=== PATIENT | female | born 1995 | race Caucasian/White ===

== ENCOUNTER 2023-05-23 10:02 | Emergency (ER) | payer OTHER, SELFPAY ==
--- NOTE | 2023-05-23 10:05 | ED.LOWEXIN ---
HPI - Extremity Injury (Lower) General Chief Complaint: Extremity Injury, Lower Stated Complaint: Left Ankle Pain Time Seen by Provider: 05/23/23 10:22 Source: patient and RN notes reviewed Mode of arrival: ambulatory Limitations: no limitations History of Present Illness HPI Narrative: 28-year-old female who is 14 weeks presents with concern for left ankle pain. Reports yesterday she rolled her ankle on a curb. She reports no pain at rest, reports pain with weight-bearing and flexion or extension. She reports lateral pain and swelling. She denies decreased strength, sensation, range of motion. She has taken Tylenol and used ice and elevation MD complaint: ankle injury Related Data Allergies Allergy/AdvReac Type Severity Reaction Status Date / Time No Known Allergies Allergy Verified 05/23/23 10:20 Review of Systems Review of Systems: CONSTITUTIONAL: Denies malaise, chills, sweats, or fever. SKIN: Denies rash or itching, open skin, laceration, abrasion, redness, warmth MUSCULOSKELETAL: Reports left ankle pain and swelling NEUROLOGIC: Denies numbness, weakness All systems reviewed & are unremarkable except as noted in HPI and below PMFSH Comments At time of signature, agree with nursing past medical, surgical, social and family history. There is no relevant family history pertinent to the presenting complaint Exam Narrative: GENERAL: Well-appearing, well-nourished, and in no acute distress. HEAD: Normocephalic, atraumatic. EYES: PERRLA, conjunctivae clear NECK: Supple. CHEST: Speaks in full sentences. No respiratory distress. HEART: Regular rate and rhythm. Normal and equal peripheral pulses. EXTREMITIES: Left ankle has normal strength and sensation, normal range of motion. Mild lateral edema, no ecchymosis. Normal sensation with sensitivity to light touch and pain. Lateral ankle tenderness. No open wounds, no skin tenting, no devitalized tissue or atrophy, no trophic changes, no obvious deformity, alignment normal, nearby joints and structures intact. Distal pulses palpable and equal bilaterally, skin warm, dry, pink. Capillary refill less than 3 seconds. SKIN: Warm, dry, no rash. NEURO: Alert and oriented x3. PSYCH: Normal mood and affect Course Course Emergency Course: Through shared decision making, it was decided to not x-ray the ankle today due to the , patient will treat conservatively and follow up with her primary care doctor if symptoms do not improve Patient is aware of understands and agrees to treatment plan. Anticipatory guidance given. Patient agrees to follow-up as directed and is aware of reasons to seek care at the emergency department. Portions of this record may have been created with voice recognition software Level of Care: Express Care Visit Vital Signs Vital signs: Reviewed. MDM - Extremity Injury (Lower) MDM Narrative Medical decision making narrative: Patients injury and pain is consistent with musculoskeletal etiology. No signs of neurological or vascular compromise on exam. Compartments and tissues are soft without signs of compartment syndrome. Pain is felt appropriate for further evaluation on an outpatient basis. Critical Care Time Critical Care Time Critical Care Time: No Discharge Plan Discharge Clinical Impression: Ankle injury Patient Disposition: Home, Self-Care Condition: Stable Instructions: Ankle Sprain (ED) Additional Instructions: Avoid activities that cause pain until the pain subsides. Ice to the area 20-30 minutes 4-6 times a day Elevate above heart Elastic wrap as directed for comfort for the next 5-7 days Crutches as directed if needed Tylenol for pain Follow up with your primary care provider if the condition is not improving within 1 week. If the condition worsens with numbness, tingling, decrease sensation with weakness seek treatment in the emergency room immediately. Follow-up/Referrals: UNKNOWN,DOCTO
[2023-05-23 10:20] VITALS: BP 124/66; PULSE 79; RESP 16; TEMP 37; O2SAT 100
== END 2023-05-23 10:37 | disposition home or self-care (01) ==
PROVIDERS: Emergency Provider Nurse Practitioner
DX: S99.912A Unspecified injury of left ankle, initial encounter (principal); X50.0XXA Overexertion from strenuous movement or load, initial encounter
CPT/HCPCS: 99212; G0463

== ENCOUNTER 2023-10-31 18:45 | Inpatient (IN) | payer OTHER, SELFPAY ==
[2023-10-31 19:06] VITALS: BP 133/79; PULSE 88
--- NOTE | 2023-10-31 19:09 | LDADM ---
This patient, Elham Plascencia, was admitted to Labor/Delivery/Recovery 106 on 10/31/23 at 18:45. Plans for labor, pain management and were discussed with patient. Patient/family oriented to hospital policies and general routines including ID bracelet, bed and alarms, visiting hours, pain management, procedures, bathroom and other care routines, personal items, smoking policy, room service/diet and guest tray routines, infant security routines, and visiting hours. Patient/Family are encouraged to report perceived risks to care and to ask questions if they do not understand what they are told or what they should do. See OBIX for further documentation.
[2023-10-31 19:15] VITALS: BP 126/81; PULSE 87
[2023-10-31 19:16] VITALS: BMI 32.8
[2023-10-31 19:46] LABS: Glucose Point of Care 90 mg/dl (65-105)
[2023-10-31 19:50] LABS: Basophils Percent Auto 0.3 % (0.2-1.2); Eosinophils Absolute Auto 0.1 K/mm3 (0-0.3); Eosinophils Percent Auto 1.1 % (0-4.4); Hematocrit 31.9 % (37.0-47.0); Hemoglobin 10.9 g/dL (12.0-15.0); Immature Granulocyte Absolute 0.13 K/mm3 (0.00-0.031); Immature Granulocyte Percent A 1.1 % (0-0.5); Lymphocytes Absolute Auto 2.29 K/mm3 (0.9-3.2); Mean Corpuscular HGB Conc 34.2 g/dl (32-36); Mean Corpuscular Volume 90.6 fl (80-100); Mean Platelet Volume 9.5 fl (7.4-10.4); Monocytes Absolute Auto 1.1 K/mm3 (0.1-0.6); Monocytes Percent Auto 9.1 % (2.6-8.5); Neutrophils Absolute Auto 8.4 K/mm3 (1.3-6.7); Neutrophils Percent Auto 69.4 % (45.5-73.1); Platelet Count Result 386 k/mm3 (150-375); Red Blood Count 3.52 M/mm3 (4.2-5.4); Red Cell Distribution Width 14.1 % (11.5-14.5); White Blood Count 12.1 K/mm3 (4.5-10.0)
[2023-10-31 20:00] VITALS: TEMP 36.4
[2023-10-31 20:01] VITALS: BP 123/72; PULSE 72
[2023-10-31] MEDS: AMPICILLIN 2 GM/NS 100 ML 2 GM/100 ML BAG IVPB (20:16)
[2023-10-31] MEDS: LACTATED RINGERS 1,000 ML 125 ML IV CONT (20:17)
[2023-10-31 20:31] VITALS: BP 121/72; PULSE 80
--- NOTE | 2023-10-31 20:51 | PHAR ---
PT'S HOME MED HUMULIN N U-100 INSULIN VIAL VERIFIED BY PHARMACY
[2023-10-31 21:01] VITALS: BP 126/72; PULSE 66
[2023-11-01] VITALS (173 sets, daily range): BP systolic 92–144; BP diastolic 22–115; PULSE 63–214; RESP 18–20; TEMP 36.4–38.6; O2SAT 68–100
[2023-11-01] MEDS: miSOPROStol 25 MCG TABLET VAGINAL (00:02)
[2023-11-01] MEDS: AMPICILLIN 1 GM/NS 50 ML 1 GM/50 ML BAG IVPB ×4 (00:02→12:09)
--- NOTE | 2023-11-01 01:02 | WPDANESEPP ---
Anes - Eval Pre Procedure Procedure: Labor Epidural Date/Time: 11/01/23 01:02 Surgeon: Stacey Preop Diagnosis: Labor pain Pre Op Diagnosis: IOL Patient Data Age: 28 Gender: F Height: 1.7 m Weight: 95 kg Last Vital Signs Temp 36.4 C 10/31/23 20:00 Pulse 84 11/01/23 01:00 BP 138/83 11/01/23 01:00 Allergies Allergy/AdvReac Type Severity Reaction Status Date / Time No Known Allergies Allergy Verified 05/23/23 10:20 Home Medications Medication Instructions Recorded Confirmed Type insulin NPH isoph U-100 human 100 14 unit subcut DAILY 10/21/23 10/21/23 History unit/mL subcutaneous suspension (Humulin N NPH U-100 Insulin (isophane susp)) prenat.vits,lucille,[id number] 1 tablet 10/21/23 History Laboratory Tests 10/31/23 10/31/23 19:30 19:43 WBC 12.1 H K/mm3 (4.5-10.0) RBC 3.52 L M/mm3 (4.2-5.4) Hgb 10.9 L g/dL (12.0-15.0) Hct 31.9 L % (37.0-47.0) MCV 90.6 fl (80-100) MCH 31.0 pg (26-34) MCHC 34.2 g/dl (32-36) RDW 14.1 % (11.5-14.5) Plt Count 386 H k/mm3 (150-375) MPV 9.5 fl (7.4-10.4) Immature Gran % (Auto) 1.1 H % (0-0.5) Neut % (Auto) 69.4 % (45.5-73.1) Lymph % (Auto) 19.0 % (18.3-44.2) Swain % (Auto) 9.1 H % (2.6-8.5) Eos % (Auto) 1.1 % (0-4.4) Baso % (Auto) 0.3 % (0.2-1.2) Lymph # (Auto) 2.29 K/mm3 (0.9-3.2) Swain # (Auto) 1.1 H K/mm3 (0.1-0.6) Eos # (Auto) 0.1 K/mm3 (0-0.3) Baso # (Auto) 0.0 K/mm3 (0.0-0.1) Abs Immat Gran (auto) 0.13 H K/mm3 (0.00-0.031) Absolute Neuts (auto) 8.4 H K/mm3 (1.3-6.7) Absolute Nucleated RBC 0.000 K/mm3 (0.0-0.012) Nucleated RBC % 0.0 % (0.0-0.2) POC Capillary Glucose 90 mg/dl (65-105) RPR Pending Blood Type O Positive Antibody Screen Negative Patient hx anesthesia problems: none Family hx anesthesia problems: none Results Review: All pre-operative results and documents have been reviewed as part of the pre-operative evaluation. [facility] Family History Family History Grandparent Leukemia Social History Social History Smoking status: Former smoker Tobacco type: e-cigarettes/vaping Smoking end date: 10/25/19 Substance use: never Do You Feel Safe in your Home?: Yes Lack of Transportation: No Lack of Food: Never True Current Housing: I Have Housing Concerned About Future Housing: No Difficulty Paying Gas/Electric Bills: No Difficulty Paying for Meds: No Currently Unemployed: No Education: Master's Degree or Higher Difficulty w/ Childcare or Family Care: No Spiritual care concerns: No Exam Day of Procedure 11/01/23 01:02
[2023-11-01] MEDS: LACTATED RINGERS 1,000 ML 125 ML IV CONT ×2 (04:11→07:08)
[2023-11-01] MEDS: OXYTOCIN 30 UNITS/NS 500 ML 30 UNITS/500 ML BAG IV CONT (04:29)
--- NOTE | 2023-11-01 07:39 | WPDOBADMIT ---
Obstetrics - Admit Note Admission Note: record reviewed. No pertinent additions to the history and/or any subsequent changes in the physical findings that are not consistent with the expected course of the were found. Additions to the history and/or subsequent changes in the physical findings follow. IOL, GDMA-2, cholestasis, SVE /-1 AROM, moderate amount of clear, odorless fluid, anticipate vaginal delivery
[2023-11-01 07:54] LABS: Glucose Point of Care 103 mg/dl (65-105)
[2023-11-01 10:07] LABS: Glucose Point of Care 92 mg/dl (65-105)
[2023-11-01 12:19] LABS: Glucose Point of Care 68 mg/dl (65-105)
[2023-11-01] MEDS: ACETAMINOPHEN 500 MG TABLET 1000 MG PO (13:37)
[2023-11-01] MEDS: fentaNYL CITRATE INJ (*CRX) 100 MCG/2 ML VIAL IV PUSH (14:26)
[2023-11-01 14:27] LABS: Rapid Plasma Reagin Non-Reactive (NonReactive)
--- NOTE | 2023-11-01 14:34 | P.PCNOB_ITS ---
OB - Vaginal Delivery Note Procedure Delivery date: 11/01/23 Events: Gestational Diabetes, Positive Group B Strep (GBS) (unknown) and Other (cholestasis) Induction method: AROM, Per Misoprostol Protocol and Per Pitocin Protocol Route of delivery: Episiotomy description: None Laceration Description: Labial (right) Delivery repair: vicryl Specimen: Yes Quantitative Blood Loss (ml): 150 Anesthesia type: Epidural Disposition: Floor Complications: No immediate complications Baby Date of : 11/01/23 Time of : 14:19 Weeks of gestation at delivery: 37 Infant gender: Male presentation: vertex position: Left Occiput Anterior (compound presentation) Placenta delivery description: Manual Removal Cord Vessel Description: 3 Vessels, Nuchal Cord (x1), Reduced and Delayed Cord Clamping (30 sec) 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
[2023-11-01] MEDS: OXYTOCIN 30 UNITS/NS 500 ML 30 UNITS/500 ML BAG 125 UNITS IV CONT (14:50)
--- NOTE | 2023-11-01 16:55 | OBPPTRN ---
Patient transferred to post room #284 via wheelchair. Support person present. Oriented to unit, room, information board, rooming in, admission packet and security measures. Patient verbalizes understanding.
[2023-11-01] MEDS: IBUPROFEN 600 MG TABLET PO (17:12)
[2023-11-02 04:56] LABS: Hematocrit 31.1 % (37.0-47.0)
[2023-11-02 05:00] VITALS: BP 107/61; PULSE 88; RESP 18; TEMP 37.8; O2SAT 96
--- NOTE | 2023-11-02 07:58 | WPDANLDPN2 ---
Anes-Prog Note L&D Date/Time: 11/02/23 07:58 Comfortable throughout: labor and delivery Neuraxial method: epidural Epidural/Spinal procedure site: clean & non-tender Neuro status: Neuro function grossly intact. Cardiovascular status: normal Respiratory status: normal Airway patency: baseline Mental status: baseline Post-Op hydration status: normal Vital Signs: Last Vital Signs Temp 37.8 C H 11/02/23 05:00 Pulse 88 11/02/23 05:00 Resp 18 11/02/23 05:00 BP 107/61 11/02/23 05:00 Pulse Ox 96 11/02/23 05:00 O2 Del Method Room Air 11/01/23 17:00 Pain score (VAS): 3/10 I/O: Intake & Output 11/01/23 11/01/23 11/02/23 15:59 23:59 07:59 Intake Total 1564.6 Output Total 150 330 Balance 1414.6 -330 Post-procedural complaints: pruritis mild, no treatment Patient feedback: Patient satisfied with anesthetic care.
[2023-11-02] MEDS: DOCUSATE SODIUM 100 MG CAPSULE PO (08:20)
[2023-11-02] MEDS: IBUPROFEN 600 MG TABLET PO (08:20)
[2023-11-02] MEDS: MULTIVIT/MIN/PREN/FOL AC/IRON TABLET 1 TAB PO (08:20)
--- NOTE | 2023-11-02 08:33 | PM.OBPNVD ---
OB - PN: Subj Subjective Date/time seen: 11/02/23 08:33 Patient comments: no complaints, pain well controlled, incisional pain, tolerating diet and flatus present OB - PN: Obj Data Labs 11/02/23 03:48 Labs: Laboratory Results - last 24 hr 10/31/23 11/01/23 11/01/23 19:30 10:03 12:13 Hgb Hct POC Capillary Glucose 92 68 RPR Non-reactive 11/02/23 03:48 Hgb 10.0 L Hct 31.1 L POC Capillary Glucose RPR OB - PN A/P Plan day: 1 Plan: routine care Comments: No problems, routine care Time Spent With Patient Time: Total time spent is greater than 50% in coordination of care (as documented) at patient's floor/unit and/or counseling patient: Exam Const: General: comfortable, no acute distress and alert Resp: Effort & Inspection: normal respiratory effort Auscultation: no crackles, no rales and no rhonchi Cardio: Rate: regular rate Heart sounds: no click, no murmurs and no rubs GI: Inspection: non-distended GI Palp: No Tenderness to palpation present (GI) Auscultation: normal bowel sounds Other: Incision - CDI Extrem: General: normal to inspection, no pedal edema and no calf tenderness
--- NOTE | 2023-11-02 08:34 | PM.OBDSVD ---
DS: Admitting Diagnosis Discharge Date November 02, 2023 Admitting Diagnosis term DS: Discharge Diagnosis Discharge Diagnosis (1) Post term , delivered: Code(s): O48.0 - Post-term Status: Acute OB - DS: Summary OB Procedures : None OB Procedures Intrapartum: Spontaneous Vag Delivery OB Procedures: : None Peripartum Data Laceration Description: Labial (right) Episiotomy description: None Time Spent with Patient Time attestation: Total time spent providing and/or coordinating discharge services: DS: Data Data Completed and Pending Pending studies at discharge: Pending at discharge 11/01/23 16:33 Surgical [PTH] Routine Labs on day of discharge: Labs from last 24 hours 11/02/23 11/01/23 11/01/23 03:48 12:13 10:03 Hgb 10.0 L Hct 31.1 L POC Capillary Glucose 68 92 RPR 10/31/23 19:30 Hgb Hct POC Capillary Glucose RPR Non-reactive Discharge Plan Discharge Consulting providers: Mimi Montano Discharging Clinician: Caroline Ibarra Patient Disposition: Home, Self-Care Activity: pelvic rest Diet: regular Patient Instructions: Antibiotic Form Stand Alone Forms: General Discharge Information Follow-up/Referrals: Caroline Ibarra MD [Physician] - Discharge Medications: Continued #2 Tablet 1 tablet Discontinued Humulin N NPH U-100 Insulin 100 unit/mL Suspension 14 unit SUBCUT DAILY Date of admission: 10/31/23 18:45 Primary Care Provider: PHYSICIAN,MERCHANDISE CLERK Admitting Provider: Caroline Ibarra Attending physician on admission: Caroline Ibarra Condition: Stable
[2023-11-02 08:55] VITALS: BP 112/68; PULSE 76; RESP 16; TEMP 37; O2SAT 99
[2023-11-03 10:04] VITALS: BP 125/77; PULSE 78; RESP 18; TEMP 37.1; O2SAT 100
== END 2023-11-02 10:38 | disposition home or self-care (01) | DRG 806 ==
LOC: ANHLDR 11-01 12:09 → ANHOB2 11-01 16:56
PROVIDERS: Advanced Practice Midwife; Admitting Provider Obstetrics & Gynecology; Visit Provider Obstetrics & Gynecology
DX: O24.429 Gestational diabetes mellitus in childbirth, unspecified control (principal); O26.643 Intrahepatic cholestasis of pregnancy, third trimester; Z37.0 Single live birth; Z3A.37 37 weeks gestation of pregnancy; O75.2 Pyrexia during labor, not elsewhere classified; O48.0 Post-term pregnancy; O70.0 First degree perineal laceration during delivery
CPT/HCPCS: 36415; 82948; 85014; 85018; 85025; 86592; 86850; 86900; 86901; 88307; A9270; J0290; J2590; J2795; J3010; J7120

== ENCOUNTER 2025-02-08 07:20 | Outpatient (CLI) | payer OTHER, SELFPAY ==
--- NOTE | ~2025-02-08 | US_ITS ---
Limited Abdominal Sonogram: Real-time sonographic imaging of the right upper quadrant was performed. Clinical History: Right upper quadrant pain Findings: The liver appears normal with no evidence of mass lesion or bile duct dilatation. Main por andra vein demonstrates normal direction of flow. The gallbladder is well distended, and appears normal with no evidence of gallstone or wall thickening. The common bile duct measures 3 mm. The visualize d pancreas, aorta, and IVC are unremarkable. Impression: No significant abnormality seen. Reviewed, dictated and finalized at location M. Impression: No significant abnormality seen.
== END 2025-02-08 07:21 | disposition home or self-care (01) ==
LOC: MICIMG 07:21
PROVIDERS: PCP Nurse Practitioner Family; Visit Provider Nurse Practitioner Family
DX: R10.11 Right upper quadrant pain (principal)
CPT/HCPCS: 76705